=== PATIENT | female | born 1975 ===

== ENCOUNTER 2019-02-11 11:00 | Emergency (ER) | payer SELFPAY ==
[~2019-02-11] VITALS: Ht 154.9 cm; Wt 78.9 kg
[2019-02-11 11:06] VITALS: Ht 154.9 cm; Wt 78.9 kg
[2019-02-11] MEDS ORDERED: HCTZ/LISINOPRIL1 TA1 PO (11:24)
[2019-02-11] MEDS ORDERED: METOPROLOL SUC100 M2 PO (11:24)
[2019-02-11 12:00] VITALS: BP 108/71
== END 2019-02-11 12:02 | disposition home or self-care (01) ==
LOC: ED 11:00
DX: G51.0 Bell's palsy (principal); I10 Essential (primary) hypertension; Z88.0 Allergy status to penicillin